=== PATIENT | male | born 1990 | race Caucasian/White ===

== ENCOUNTER 2016-10-31 14:55 | Inpatient (IN) | payer OTHER ==
[~2016-10-31] VITALS: Ht 175.3 cm; Wt 93.0 kg
[2016-10-31] MEDS ORDERED: CLONIDINE HCL 0.3 MG/24 HR TRANSDERM SYS TD STA (15:21)
--- NOTE | 2016-10-31 15:40 | EMERGENCY ROOM VISIT NOTE ---
History Report prepared by Scott: Ethan Wilkerson Under the Supervision of: Dr. Rizwan Salinas M.D. First contact with patient: 15:20 Chief Complaint: MENTAL HEALTH EVALUATION Stated Complaint: DEPRESSION, ANXIETY History of Present Illness The patient is a 26 year old male who presents to the Emergency Room with worsening suicidal ideations today. He says that he has been at [facility] for treatment for alcohol and heroin withdrawal. The patient states that he last used heroin 3 months ago, and last drank alcohol earlier today. He says that he has been having worsening anxiety problems, and has been having thoughts that he does not want to live. He had plans today to hang himself. The patient notes that he was being given Valium at [facility] for his withdrawal symptoms. Source of History: patient Onset: Today Position: other (global - suicidal ideations) Quality: other (planned to hang himself) Note: Associated symptoms: Worsening anxiety problems. Heroin and alcohol withdrawal. Last used alcohol earlier today. Review of Systems See HPI for pertinent positives & negatives. A total of 10 systems reviewed and were otherwise negative. Past Medical & Surgical Medical Problems: (1) Anxiety (2) Depression (3) Heroin abuse Family History No pertinent family history Social History Alcohol Use: occasionally, other (withdrawal) Drug Use: heroin (withdrawal) Marital Status: single Occupation Status: unemployed Current/Historical Medications Scheduled Buprenorphine Hcl-Naloxone Hcl (Suboxone 8-2 Mg), 1 TAB SL DAILY Diazepam (Valium), 10 MG PO AMHS Diazepam (Valium), 10 MG PO Q8 Allergies Coded Allergies: No Known Allergies (Unverified , 10/31/16) Physical Exam Vital Signs Date Time Temp Pulse Resp B/P (MAP) Pulse Ox O2 Delivery O2 Flow Rate FiO2 10/31/16 19:51 72 18 109/77 98 10/31/16 17:38 76 16 121/68 97 Room Air 10/31/16 15:11 36.7 75 20 121/65 97 Room Air Physical Exam GENERAL: Patient is a healthy-appearing well-nourished 26 year old male. HEAD: Normocephalic atraumatic EYES: Ocular movements intact pupils equal and react to light OROPHARYNX mucous membranes are moist no exudates present no erythema or edema present NECK: Supple no nuchal rigidity CHEST: Good equal expansion LUNGS: Clear and equal to auscultation CARDIAC: Normal S1 and S2 ABDOMEN: Soft nontender no guarding BACK: No CVA tenderness EXTREMITIES: No pain upon palpation normal muscle strength in all groups no clubbing cyanosis or edema NEURO: Patient is following commands and answering questions appropriately. Alert and oriented x3 Cranial Nerves 2-12 grossly intact PSYCH: Agitated. Medical Decision & Procedures Laboratory Results 10/31/16 16:45 Red Blood Count 5.11, Mean Corpuscular Volume 86.5, Mean Corpuscular Hemoglobin 29.9, Mean Corpuscular Hemoglobin Concent 34.6, Mean Platelet Volume 8.8, Neutrophils (%) (Auto) 56.9, Lymphocytes (%) (Auto) 33.1, Monocytes (%) (Auto) 5.3, Eosinophils (%) (Auto) 3.8, Basophils (%) (Auto) 0.7, Neutrophils # (Auto) 5.80, Lymphocytes # (Auto) 3.37, Monocytes # (Auto) 0.54, Eosinophils # (Auto) 0.39, Basophils # (Auto) 0.07 10/31/16 16:45 Test 10/31/16 15:30 10/31/16 16:45 Urine Color YELLOW Urine Appearance CLEAR (CLEAR) Urine pH 7.0 (4.5-7.5) Urine Specific [place] 1.017 (1.000-1.030) Urine Protein NEG (NEG) Urine Glucose (UA) NEG (NEG) Urine Ketones NEG (NEG) Urine Occult Blood NEG (NEG) Urine Nitrite NEG (NEG) Urine Bilirubin NEG (NEG) Urine Urobilinogen NEG (NEG) Urine Leukocyte Esterase NEG (NEG) Urine Opiates Screen NEG (NEG) Urine Methadone, Qualitative NEG (NEG) Urine Barbiturates NEG (NEG) Urine Phencyclidine (PCP) Level NEG (NEG) Ur Amphetamine/Methamphetamine NEG (NEG) MDMA (Ecstasy) Screen POS (NEG) Urine Benzodiazepines Screen POS (NEG) Urine Cocaine Metabolite POS (NEG) Urine Marijuana (THC) POS (NEG) White Blood Count 10.19 K/uL (4.8-10.8) Red Blood Count 5.11 M/uL (4.7-6.1) Hemoglobin 15.3 g/dL (14.0-18.0) Hematocrit 44.2 % (42-52) Mean Corpuscular Volume 86.5 fL (80-100) Mean Corpuscular Hemoglobin 29.9 pg (25-34) Mean Corpuscular Hemoglobin Concent 34.6 g/dl (32-36) Platelet Count 344 K/uL (130-400) Mean Platelet Volume 8.8 fL (7.4-10.4) Neutrophils (%) (Auto) 56.9 % Lymphocytes (%) (Auto) 33.1 % Monocytes (%) (Auto) 5.3 % Eosinophils (%) (Auto) 3.8 % Basophils (%) (Auto) 0.7 % Neutrophils # (Auto) 5.80 K/uL (1.4-6.5) Lymphocytes # (Auto) 3.37 K/uL (1.2-3.4) Monocytes # (Auto) 0.54 K/uL (0.11-0.59) Eosinophils # (Auto) 0.39 K/uL (0-0.5) Basophils # (Auto) 0.07 K/uL (0-0.2) RDW Standard Deviation 43.7 fL (36.4-46.3) RDW Coefficient of Variation 13.8 % (11.5-14.5) Immature Granulocyte % (Auto) 0.2 % Immature Granulocyte # (Auto) 0.02 K/uL (0.00-0.02) Anion Gap 9.0 mmol/L (3-11) Est Creatinine Clear Calc Drug Dose 159.0 ml/min Estimated GFR () 143.9 Estimated GFR (Non- 124.2 BUN/Creatinine Ratio 11.9 (10-20) Calcium Level 9.5 mg/dl (8.5-10.1) Total Bilirubin 0.7 mg/dl (0.2-1) Direct Bilirubin 0.2 mg/dl (0-0.2) Aspartate Amino Transf (AST/SGOT) 66 U/L (15-37) Alanine Aminotransferase (ALT/SGPT) 150 U/L (12-78) Alkaline Phosphatase 98 U/L (45-117) Total Protein 8.1 gm/dl (6.4-8.2) Albumin 4.3 gm/dl (3.4-5.0) Thyroid Stimulating Hormone (TSH) 3.530 uIu/ml (0.300-4.500) Ethyl Alcohol mg/dL < 3.0 mg/dl (0-3) Labs reviewed by ED physician. Medications Administered Medications (Trade) Dose Ordered Sig/Alissa Route Start Time Stop Time Status Last Admin Dose Admin Clonidine HCl (Tnqosaro-Omq-2 0.3mg/24hr Patch) 1 patch CQWK STAT TD 10/31/16 15:21 10/31/16 15:22 DC 10/31/16 16:20 1 PATCH Lorazepam (Ativan Tab) 2 mg NOW ONCE PO 10/31/16 16:15 10/31/16 16:16 DC 10/31/16 16:17 2 MG Nicotine (Nicoderm Cq 21MG Patch) 1 patch NOW STAT TD 10/31/16 19:29 10/31/16 19:31 DC 10/31/16 19:39 1 PATCH Lorazepam (Ativan Tab) 1 mg NOW STAT SL 10/31/16 19:30 10/31/16 19:31 DC 10/31/16 19:39 1 MG ED Course 152: Ordered Yncmhhfn-Jvs-1 0.3mg/24hr Patch 1 patch TD. 153: Past medical records reviewed. The patient was evaluated in room A6. A complete history and physical examination was performed. 160: Ordered Ativan Tab 2 mg PO. 161: We are going to 302 the patient. 1928: Ordered Nicoderm Cq 21MG Patch 1 patch TD. 1929: Ordered Ativan Tab 1 mg SL. 1944: The patient was brought upstairs to [address] [place] [address] for further treatment. Medical Decision Differential diagnosis: Etiologies such as mood disorder, infection, hypoglycemia, electrolyte abnormalities, cardiac sources, intracerebral event, toxicologic, neurologic, as well as others were entertained. Medication Reconciliation: I attest that I have personally reviewed the patient' s current medication list Blood Pressure Screening: Patient was found to have normal blood pressure on screening and does not require follow up. This is a 26-year-old male who presents emergency department complaining of narcotic and opiate withdrawal. Upon my arrival to the room the patient is requesting Ativan. I will note that the patient just came from a detox center. I told the patient he would receive Catapres patch at this point the patient immediately became incredibly angry and wished to be discharged. The patient at this point wanted to leave. He denied being suicidal or homicidal. Based on this [facility] was again contacted. They are going to fill out a 302 on the patient as they felt he tried to commit suicide at an earlier institution., The patient he was then given 2 mg of Ativan by mouth. He then accepted the Catapres patch. The case was discussed with case management I will note that the patient tested positive for multiple drugs including opioids and cocaine. The patient was discussed with case management and the patient was admitted to [facility]. Impression Primary Impression: Mood disorder Additional Impression: Polysubstance abuse Scribe Attestation The scribe's documentation has been prepared under my direction and personally reviewed by me in its entirety. I confirm that the note above accurately reflects all work, treatment, procedures, and medical decision making performed by me. Departure Information Dispostion Mental Health Acute Care (to 3 south) Referrals No Doctor, Assigned (PCP) Patient Instructions My [facility] Problem Qualifiers
[2016-10-31 16:01] LABS: MANUAL MICROSCOPIC REQUIRED? NO; REVIEW REQ? NO; URINE APPEARANCE CLEAR (CLEAR); URINE BILIRUBIN NEG (NEG); URINE COLOR YELLOW; URINE NITRITE NEG (NEG); URINE SPECIFIC GRAVITY 1.017 (1.000-1.030); UROBILINOGEN NEG (NEG)
[2016-10-31] MEDS ORDERED: LORAZEPAM 2 MG TAB PO STA (16:05)
[2016-10-31] MEDS ORDERED: LORAZEPAM 1 MG TAB PO ONE (16:15)
[2016-10-31] MEDS ORDERED: DIAZ2TAB2 PO (16:41)
[2016-10-31] MEDS ORDERED: BUPR1SUB23 SL (16:41)
[2016-10-31 16:44] LABS: BENZODIAZEPINE, URINE POS (NEG); COCAINE,URINE POS (NEG); PHENCYCLIDINE, URINE NEG (NEG)
[2016-10-31 17:03] LABS: BASO % 0.7 %; BASO ABS # 0.07 K/uL (0-0.2); COMPLETE YES; EOS % 3.8 %; HEMATOCRIT 44.2 % (42-52); IG% 0.2 %; LYMPH % 33.1 %; LYMPH ABS # 3.37 K/uL (1.2-3.4); MEAN CELL VOLUME 86.5 fL (80-100); MEAN CORPUSCULAR HEMOGLOBIN 29.9 pg (25-34); MEAN CORPUSCULAR HGB CONC 34.6 g/dl (32-36); MEAN PLATELET VOLUME 8.8 fL (7.4-10.4); MONO % 5.3 %; NEUT % 56.9 %; PLATELET COUNT 344 K/uL (130-400); RED BLOOD COUNT 5.11 M/uL (4.7-6.1); WHITE BLOOD COUNT 10.19 K/uL (4.8-10.8)
[2016-10-31 17:32] LABS: BUN/CREATININE RATIO 11.9 (10-20); CALCIUM 9.5 mg/dl (8.5-10.1); CREATININE 0.8 mg/dl (0.60-1.40)
[2016-10-31 17:48] LABS: THYROID STIMULATING HORMONE 3.53 uIu/ml (0.300-4.500)
[2016-10-31] MEDS ORDERED: DIAZ10TA PO ×3 (19:03→22:24)
[2016-10-31] MEDS ORDERED: NICOTINE 21 MG/24 HR TDSY TD STA (19:29)
[2016-10-31] MEDS ORDERED: LORAZEPAM 1 MG TAB SL STA (19:30)
[2016-10-31 19:51] VITALS: O2SAT 98
[2016-10-31] MEDS ORDERED: MULT-506 PO (20:28)
[2016-10-31] MEDS ORDERED: GABAPENTIN 600 MG TAB PO SCH (20:30)
[2016-10-31] MEDS ORDERED: LEVE250T PO (20:30)
[2016-10-31] MEDS ORDERED: GUAN1TAB PO (20:30)
[2016-10-31] MEDS ORDERED: QUET1TAB34 PO (20:30)
[2016-10-31] MEDS ORDERED: LAMO100T PO (20:30)
[2016-10-31 20:35] VITALS: BP 105/56; PULSE 64; TEMP 37
[2016-10-31] MEDS ORDERED: NURSING VERBAL MED ORDER ONE (20:45)
[2016-10-31] MEDS ORDERED: DIPHENOXYLATE/ATROPINE 2.5/0.025MG TAB PO PRN (21:30)
[2016-10-31] MEDS ORDERED: ACETAMINOPHEN 325 MG TAB PO PRN (21:45)
[2016-10-31] MEDS ORDERED: MAGNESIUM HYDROXIDE SUSP 30 ML UDC PO PRN (21:45)
[2016-10-31] MEDS ORDERED: SODIUM CHLORIDE 0.65% NA SOLN 45 ML (OCEAN) PRN (21:45)
[2016-10-31] MEDS ORDERED: BISMUTH SUBSALICYLATE PER ML OMNICELL CHARGE PO PRN (21:45)
[2016-10-31] MEDS ORDERED: ALUMINUM/MAGNESIUM SUSP 30 ML UDC PO PRN (21:45)
[2016-10-31] MEDS ORDERED: hydrOXYzine HCL 25 MG TAB PO PRN (21:45)
--- NOTE | 2016-10-31 21:58 | Psych Management Progress Note ---
Psychiatry Miscellaneous Date of Service: Oct 31, 2016. case reviewed with Dr. Figueroa (manager of organizational development psychiatrist) and unit nurse given conflict between med rec, ED doses of meds listed and info gathered since admit from [facility]. Patient is from [place] and was court ordered to rehab. He was at the facility for just over 1 day and was started on multiple medications there for detox and seizure precautions. He received additional benzodiazepines and clonidine patch in ED. RN reports that rx suboxone 8 mg-2 mg BID, Valium 10 mg BID plus prn, Keppra 500 mg BID in addition to home meds and Tenex 1 mg BID which is non-formulary here. Valium was replaced with neurontin taper with prn Ativan according to hospital alcohol withdrawal protocol. Dr. Figueroa ordered clonidine protocol in place of patch. There is risk of combined sedation with Neurotin and suboxone but much less potential for interaction than the respiratory suppression listed with suboxone and benzo. Dosing of suboxone reviewed with Rafi from pharmacy who entered order on my behalf with dose administered now as no 5 pm given. Standard unit prns ordered. There is apparently a suboxone taper written which will need to be reviewed by the treating provider tomorrow, I'd generally recommend that suboxone continue at current dose and can be readdressed when returns to rehab. PDMP Rx Aware queried, [place] state shows 7 doses of suboxone 8 mg-2 mg filled 10/28. No other controlled substance. No history in [place]. Given that it appears that he got approx 1000 mg of Keppra prior to transfer to ED, will taper to 250 mg BID for tomorrow and then d/c unless other schedule ordered tomorrow when there can be more direct communication with [facility].
[2016-10-31] MEDS ORDERED: GABAPENTIN 1200MG LOADING DOSE PO SCH (22:00)
[2016-10-31] MEDS: BUPRENORPHINE/NALOXONE 8/2 MG TAB SL SCH (22:01)
[2016-10-31] MEDS: CLONIDINE HCL 0.1 MG TAB PO SCH (22:01)
[2016-10-31] MEDS: QUETIAPINE FUMARATE 100 MG TAB PO SCH (22:04)
[2016-10-31] MEDS: THIAMINE HCL 100 MG TAB PO SCH (22:04)
[2016-10-31] MEDS: LEVETIRACETAM 250 MG TAB PO SCH (22:17)
[2016-10-31] MEDS ORDERED: BUPR1SUB23 PO (22:24)
[2016-10-31 22:25] VITALS: BP 105/56; PULSE 64; TEMP 37; Ht 175.3 cm; Wt 93.0 kg
[2016-11-01] VITALS (7 sets, daily range): BP systolic 97–129; BP diastolic 61–88; PULSE 81–108; TEMP 36.5–37.2
[2016-11-01] MEDS: GABAPENTIN 600MG Q6H DOSE PO SCH ×2 (04:09→10:00)
[2016-11-01] MEDS: LEVETIRACETAM 250 MG TAB PO SCH (09:08)
[2016-11-01] MEDS: MULTIVITAMIN TAB PO SCH (09:08)
[2016-11-01] MEDS: CLONIDINE HCL 0.1 MG TAB PO SCH ×5 (09:08→20:40)
[2016-11-01] MEDS: BUPRENORPHINE/NALOXONE 8/2 MG TAB SL SCH ×3 (09:28→17:28)
[2016-11-01] MEDS: NICOTINE 21 MG/24 HR TDSY TD SCH (11:19)
--- NOTE | 2016-11-01 11:46 | Psychiatric History & Physical ---
History Date of Service Nov 01, 2016. Identifying Data Nick Munoz is a 26-year-old male from [facility], who was admitted to our unit on referral from [facility] due to reports of suicidal ideation. Information is gathered from the patient and not necessarily considered to be reliable. Chief Complaint "I don't care.". History of Present Illness The patient is a 26-year-old gentleman from [facility] who apparently had been in [facility] for several months for grand ramirez. At some point during his [facility] stay, he developed suicidal ideation and seizures and was hospitalized medically for 7 days. He was then returned to [facility] for 3 days but then the courts allowed him to return home where he was for 2 months before he failed multiple drug screens and was court ordered into rehabilitation at [facility] here in [place]. He says he was at [facility] for 3 days, began having suicidal ideation because of his situation and being away from his girlfriend. He was then brought to our emergency room for evaluation and admitted voluntarily with a backup 302 petition her statement. He states he has a lot of stressors in his life. He says his growing up years were chaotic as both parents were drug addicts and he was always around drugs. He dropped out of high school in eighth grade because he had social anxiety, couldn't be around other people. He started doing drugs at the age of 17 and it became a problem by the age of 19. He has spent time at a rehabilitation facility in [facility]. His longest period of sobriety was 1-1/2 years around the age of 19 when he went to this facility. He admits that he has continued to use substances since then including a 24 or 30 pack of beer daily, 3-5 bundles of heroin IV, several grams of cocaine daily. This is been going on for several years. He also admits that he has been in mental health treatment for many years and is on disability for it. He uses diagnoses like bipolar disorder and schizophrenia to describe his treatment. He says he is in treatment with a Dr. Lynne in [facility] but we cannot find this physician when we goggle it. He says he has been on Lamictal, Seroquel, clonidine and Klonopin for years. He does not have a good relationship with his family and was on the phone arguing with his father prior to the interview. Today he continues to report a depressed mood with suicidal ideation but denies a specific plan. He says he is experiencing nausea and vomiting as part of his withdrawal and is unable to eat and says he hasn't eaten anything in 5 days. He reports disturbed sleep acutely over the last 5 days but chronically since about the age of 16 or 17. He reports low energy but during the interview he is shaking his legs restless and leaves twice because he is irritable. When asked about hallucinations, he says "my heads all fucked up." And says that he did hear voices when he was in [facility] that old him he was worthless. He reports chronic social anxiety feeling that he can't be around people because he starts to shake, thinks they're talking about him and out to get him. This has been going on for several years. He denies any symptoms of jermain. Its difficult to tell whether he has clear eating disordered symptoms but says that he doesn't like to be fast and will sometimes not eat because of it. During the interview he is requesting high dose Valium and Suboxone and is refusing to take the AWSS protocol medicines including gabapentin. Past Psychiatric History Current OP Treatment: psychiatrist Prior OP Treatment: psychiatrist Prior Psych Hospitalizations: other Access to a Gun: No Suicide Attempts: Yes (in [place] 2 months ago by hanging while in [facility]) Past Medication Trials Prozac, Paxil, Cymbalta, Zoloft, Risperdal, Zyprexa, Abilify Past Medical/Surgical History History of Concussion/Seizure: No (1) Hypertension Allergies Allergies: Coded Allergies: No Known Allergies (Unverified , 10/31/16) Home Medications Scheduled Buprenorphine Hcl-Naloxone Hcl (Suboxone 8-2 Mg), 1 TAB PO BID Diazepam (Valium), 10 MG PO BID Guanfacine Hcl (Tenex), 1 TAB PO BID Lamotrigine (Lamictal), 1 TAB PO BID Levetiracetam (Keppra), 500 MG PO BID Multivitamin (Multivitamin), 1 TAB PO DAILY Miscellaneous Medications Quetiapine Fumarate (Seroquel), 200 MG PO Family History No pertinent family history History of Suicide: No History of Substance Abuse: Yes (parentscrack and alcohol) Psychiatric History: Yes (he reports his whole family has schizophrenia) Alcohol Use Alcohol Use In Past 12 Months: Yes (6-12 beers per day, daily) AUDIT Total Score: 27 He reports drinking 24-30 beers per day until 3 days ago Smoking Use Smoking Status: Current Every Day Smoker Substance History Chronically uses several grams of cocaine, 3-5 bundles of IV heroin as well as marijuana daily Personal History Lives in: [place] with his girlfriend Childhood: Chaotic, raised by mother and father. Father is a bundle helper. He has a 21-year-old sister who is but about to graduate from college Education: started high school (dropped out in eighth grade) Work History: On unemployment Relationship History: never Children: none Spiritual Affiliation: none Legal History: reported (grand james, violation of probation, court ordered to rehabilitation) Psychological Trauma History: Other (denies) Review of Systems Constitutional: malaise Eyes: denies: no symptoms, as stated in HPI, eye pain, tearing, itching, redness, discharge, double vision, visual changes, blurred vision, photophobia, other ENT: denies: no symptoms reported, see HPI, ear pain, ear discharge, loss of hearing, tinnitus, nasal pain, nasal congestion, rhinorrhea, epistaxis, sore throat, stidor, throat swelling, mouth pain, mouth swelling, dental pain, gum swelling, other Cardiovascular: reports: chest pain (with anxiety) Respiratory: reports: short of breath (with anxiety) Gastrointestinal: constipation (last bowel movement 6 days ago) Genitourinary - Male: reports: other (difficulty initiating stream) Musculoskeletal: back pain (from a fall 1.5 years ago) Integumentary: denies no symptoms reported, denies see HPI, denies change in color, denies change in hair/nails, denies dryness, denies lesions, denies lumps , denies rash, denies other Neurologic: reports: numbness (and tingling in bilateral lower extremities occasionally) Endocrine: denies: no symptoms, as stated in HPI, cold intolerance, heat intolerance, hair changes, goiter, polydipsia, polyuria, skin changes, other Hematologic / Lymphatic: denies: no symptoms, as stated in HPI, abnormal clotting, adenopathy, anemia, easy bleeding, easy bruising, gums bleeding, petechiae, other Examination Physical Examination Exam performed by Dr. Salinas in the emergency room yesterday has been reviewed and accepted his medical clearance for our unit Vital Signs Vital Signs Past 12 Hours Date Time Temp Pulse Resp B/P (MAP) Pulse Ox O2 Delivery O2 Flow Rate FiO2 11/01/16 09:06 36.8 105 16 128/77 11/01/16 06:14 36.9 92 14 103/69 Laboratory Results Last 24 Hours Test 10/31/16 15:30 10/31/16 16:45 Urine Color YELLOW Urine Appearance CLEAR Urine pH 7.0 Urine Specific [place] 1.017 Urine Protein NEG Urine Glucose (UA) NEG Urine Ketones NEG Urine Occult Blood NEG Urine Nitrite NEG Urine Bilirubin NEG Urine Urobilinogen NEG Urine Leukocyte Esterase NEG Urine Opiates Screen NEG Urine Methadone, Qualitative NEG Urine Barbiturates NEG Urine Phencyclidine (PCP) Level NEG Ur Amphetamine/Methamphetamine NEG MDMA (Ecstasy) Screen POS Urine Benzodiazepines Screen POS Urine Cocaine Metabolite POS Urine Marijuana (THC) POS White Blood Count 10.19 K/uL Red Blood Count 5.11 M/uL Hemoglobin 15.3 g/dL Hematocrit 44.2 % Mean Corpuscular Volume 86.5 fL Mean Corpuscular Hemoglobin 29.9 pg Mean Corpuscular Hemoglobin Concent 34.6 g/dl Platelet Count 344 K/uL Mean Platelet Volume 8.8 fL Neutrophils (%) (Auto) 56.9 % Lymphocytes (%) (Auto) 33.1 % Monocytes (%) (Auto) 5.3 % Eosinophils (%) (Auto) 3.8 % Basophils (%) (Auto) 0.7 % Neutrophils # (Auto) 5.80 K/uL Lymphocytes # (Auto) 3.37 K/uL Monocytes # (Auto) 0.54 K/uL Eosinophils # (Auto) 0.39 K/uL Basophils # (Auto) 0.07 K/uL RDW Standard Deviation 43.7 fL RDW Coefficient of Variation 13.8 % Immature Granulocyte % (Auto) 0.2 % Immature Granulocyte # (Auto) 0.02 K/uL Sodium Level 138 mmol/L Potassium Level 4.0 mmol/L Chloride Level 103 mmol/L Carbon Dioxide Level 26 mmol/L Anion Gap 9.0 mmol/L Blood Urea Nitrogen 10 mg/dl Creatinine 0.80 mg/dl Est Creatinine Clear Calc Drug Dose 159.0 ml/min Estimated GFR () 143.9 Estimated GFR (Non- 124.2 BUN/Creatinine Ratio 11.9 Random Glucose 82 mg/dl Calcium Level 9.5 mg/dl Total Bilirubin 0.7 mg/dl Direct Bilirubin 0.2 mg/dl Aspartate Amino Transf (AST/SGOT) 66 U/L Alanine Aminotransferase (ALT/SGPT) 150 U/L Alkaline Phosphatase 98 U/L Total Protein 8.1 gm/dl Albumin 4.3 gm/dl Thyroid Stimulating Hormone (TSH) 3.530 uIu/ml Ethyl Alcohol mg/dL < 3.0 mg/dl Mental Examination During interview pt is: alert and oriented, uncooperative Appearance: appropriately dressed Eye contact is: poor Motor behavior is: other (agitated with shaking legs, restlessness and left interview twice) Speech: other (at times rapid when in distress) Affect: tearful, irritable Mood is: irritable Thought process: other (disjointed) Thought content: paranoid (that others are talking about him or out to get him) Suicidal thought are: present, Plan: denied, Intent: denied Homicidal thoughts are: denied Hallucinations: denies auditory, denies visual Cognition: language grossly intact Intelligence estimated to be: below average Insight: impaired Judgement: impaired Impression / Recommendations Impression 26-year-old gentleman from [place] who is admitted to our unit from [facility] where he developed suicidal ideation. He remains in distress with depression and suicidal thinking but denies an acute plan today. He is demanding of which medications he will and will not take and at times refused to consider any recommendations for his treatment. We will continue with the AWSS protocol for withdrawal purposes using both gabapentin and Ativan. In addition to his at bedtime therapy a we will add 25 mg every 4 hours when necessary for agitation. He reports that he had been taking only Klonopin 0.5 mg by prescription prior to going to [facility] and so will likely not be at risk of benzodiazepine withdrawal and will be covered by the gabapentin for any withdrawal potential. We will get supplemental information from his father and or his girlfriend. 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 We will coordinate with [facility] as he will need to return there since he is court ordered into treatment. He is concerned that through his IV drug use he may have been exposed blood-borne pathogen's. Since this information will not change the direction of our care, we will defer this to his outpatient providers or he could [facility]. At this time, he requires inpatient mental health treatment due to the risk for self-harm if discharged. Inventory Assets Strengths: Level of his girlfriend Needs: To abstain from all illicit substances. Risk Factors Assessment Male: Yes : Yes /single/: No Higher / Fall in social status: No Access to guns: No Health problems: No Mental Health Diagnoses: Yes Substance use disorders: Yes Previous attempt: Yes Previous psychiatric stay: Yes Hopelessness: Yes Smoker: Yes Protective Factors Assessment Jew beliefs: No : No Responsible for young children: No Employed: No Stable relationships: Yes Supportive family: No Recommendations (1) Mood disorder 11/01/16 -Will clarify with his outpatient psychiatrist, Dr. Farmer, what his current regimen is. Pharmacy records reveal 3 different recent antidepressants. -Will continue his Seroquel 200 mg at bedtime and add 25 mg every 4 hours when necessary agitation -Will need to clarify outpatient working diagnosis although may be difficult to make in view of chronic substance abuse. -Will continue Lamictal 100 mg twice a day -Every 15 minute checks for safety -Encourage participation in group and individual counseling as tolerated -The patient is agitating himself by phone calls with his father and staff will need to monitor this -Obtain outpatient records from his psychiatrist to clarify diagnoses and current medication list -Supplemental from father and our family meeting (2) Polysubstance abuse 11/01/16 - Recommend return to [place] when stable - AWSS protocol using both gabapentin and Ativan - Recovery protocol -Will continue Suboxone taper here as suggested by [facility] -Obtain outpatient records from patient's Suboxone provider in [place] (3) Alcohol withdrawal 11/01/16 - AWSS Protocol using gabapentin and Ativan - Recovery protocol -Return to [facility] when stable (4) Hypertension 11/01 - Monitor vital signs every 4 hours as part of the withdrawal protocol -Quantity seen as not formulary and so will use clonidine -Difficult to tell if he actually has essential hypertension or whether his BP elevations are in the context of substance withdrawal (5) Tobacco use disorder 11/01 -Recommend patient cut down or quit. Recently smoking as much as 3 pack of cigarettes a day so we will provide nicotinic patch 21 mg daily and Nicorette gum every hour when necessary -Patient declines any further intervention for smoking cessation as he plans to return to smoking immediately upon discharge- Has been reviewed with Dr. Susie Snyder CPT Code Initial Hospital Care: [id number]
[2016-11-01] MEDS: LORAZEPAM 1 MG TAB PO PRN ×2 (12:34→18:43)
--- NOTE | 2016-11-01 14:14 | Medical Student: BHU Only ---
Psychiatric Evaluation IDENTIFYING DATA: Nick Munoz is a 26-year-old male who currently lives in [place], [place] with his girlfriend. Nick Munoz was admitted to the [facility] on a [address] [facility]. Nick Munoz was brought to the hospital by EMS. Information provided by the patient is considered to be somewhat reliable. CHIEF COMPLAINT: "They won't give me my meds". HISTORY OF PRESENT ILLNESS: This is a 26 y/o male with pmh of substantial substance abuse issues, previous incarcerations, and mental health disorders who has been transferred to [address] [place] [address] [facility] after making several comments to staff about his desire to kill himself. Patient is a poor historian and agitated at time of interview. He was on day 07/26 for required rehab for alcohol, cocaine, and heroin abuse after violating his probation. He was incarcerated 3-4 months ago for arson. While in half-way, he attempted suicide by hanging himself with sheets in his cell, which led to a 7 day hospital stay. Afterwards, he was in snf for a few days before being let out on probation. He was on probation for approximately 2 months before coming to [facility] and then here. He has an extensive past history of mental health and substance abuse issues. Patient is a poor historian in regards to his past and current health issues, and is vague about his diagnoses. At times, he describes being diagnosed with Bipolar, but then later states he is schizophrenic. He is very agitated regarding not getting the proper meds and intermittently demands ativan. His last drink was over 3 days ago. He continues to complain of withdrawal symptoms including nausea, vomiting, sweats, chills, and headaches. He note that he started using cocaine, heroin, alcohol around age 17, but it became a problem at age 19. He has been drinking as much as a 24 pack of beer a day, using 3-5 bundles of heroin a day, and a few grams of cocaine a day. He had one prior stint at rehab when he was 19 at [facility]. He reports being sober for approximately one year after that. Psychiatris ROS: Reports difficulty sleeping, decreased appetite, low energy, difficulty focusing. He reports anxiety that is especially severe around other people. He reports difficulty eating and loss of appetite but denies trying to starve himself, over exercise, or counting calories. He denies binge eating. He notes that sometimes he hears whispering voices, which started when he was in snf. The voices whisper to him that he is worthless. He denies episodes of jermain. He denies visual hallucinations. Risk of violence to self within the last 6 months: No Risk of violence to others within the last 6 months: No CURRENT MEDICATIONS: Buprenorphine Hcl-Naloxone Hcl (Suboxone 8-2 Mg), 1 TAB PO BID Diazepam (Valium), 10 MG PO BID Guanfacine Hcl (Tenex), 1 TAB PO BID Lamotrigine (Lamictal), 1 TAB PO BID Levetiracetam (Keppra), 500 MG PO BID Multivitamin (Multivitamin), 1 TAB PO DAILY PAST PSYCHIATRIC HISTORY: Current outpatient mental health treatment: Dr. Antolin Farmer in [place], [place]. Dr. Rush in [place]. Prior outpatient mental health treatment: Per above. [facility] he was 19. Prior medication trials: Has tried abilify, risperdal, prozac, paxil, wellbutrin , cymbalta, zoloft and states that 'nothing works' Prior suicide attempts: Yes, in half-way a few months ago. Access to weapons: No PAST MEDICAL HISTORY: Current primary care practitioner is N/A medical history: HTN surgical history: None history of head injury: None history of seizure: Yes, in half-way when he went through withdrawal history of iv drug use: Yes. ALLERGIES: NKDA FAMILY HISTORY: Mental Health: States mom, dad have had 'everything he has.' Substance Abuse: Mother and father: Crack, alcohol. Suicide: N/a Medical history: Heart disease, ADHD SUBSTANCE USE HISTORY: Tobacco use hx: Current 3 packs a day smoker. Heroin: 4-5 bundles a day. Cocaine: 'few grams a day' Alcohol: 12-24 beers a day PERSONAL HISTORY: Born: Born and raised in [place]. Currently resides in [place], [place]. Early development: Raised in drug/alcohol rich environment. Struggled in school as a child. Siblings: Sister who is 21, currently in school to become a food safety officer Education: Dropped out in eighth grade. Work History: Does not work. 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 Relationship History: Girlfriend of 1.5 years. Currently lives with her. Claims she does not use drugs. Children: None. Spiritual Affiliation: None. Legal History: 2 DUI's, arrested and in snf for arson this year. Physical abuse history: None. Emotional/psychological abuse history: None Sexual abuse history: None ROS: CONSTITUTIONAL: Notes weight loss. HEENT: Eyes: Denies changes in vision. Notes difficulty swallowing but is able to swallow foods and liquids. SKIN: Denies, rashes, bruises. CARDIOVASCULAR: Experiences chest pain and palpitations when anxious. RESPIRATORY: Denies SOB, cough. GASTROINTESTINAL: Having significant vomiting, nausea, constipation. Denies diarrhea. GENITOURINARY: Has difficulty initiating stream. Denies pain or hematuria. NEUROLOGICAL: Experiences daily headaches. MUSCULOSKELETAL: Generalized pains MENTAL STATUS EXAM: Appearance is that of an agitated, disheveled, and anxious male who appears of his stated age. The patient is not incredibly cooperative with interview and walks out from time to time. Eye contact is poor. Motor behavior is abnormal- at times is shaking his arms and legs. Speech: pressured Affect: Heightened Mood: "Anxious". Thought process: Thought process is circumstantial and distractible. Thought content:He is preoccupied with fixing his medication regiment.Without current hallucinations delusions, compulsions. Perception: no depersonalization, hallucinations. Cognition: The patient is oriented to person, place, time. General fund of knowledge is appropriate for level of education. ntelligence is estimated to be poor. Insight is estimated to be very limited. Judgment is estimated to be poor. INVENTORY OF ASSETS: * strengths: jail girlfriend who he claims does not use drugs. * resources: poorly verbalized * needs: poorly verbalized. RISK ASSESSMENT: * Risk factors: Male, , Health Problems, Mental Health Diagnoses, Substance Use Disorders (including smoking tobacco), Previous attempts, Previous psychiatric hospitalization, Hopelessness * Protective factors: Impulsive attempt DIAGNOSTIC IMPRESSION: This is a 26 y/o male with extensive pmh of substance abuse and mental health illnesses in the context of acute withdrawal. From a biopsychosocial perspective , there are multiple risk factors at play including: extensive family history of mental illness, growing up with drugs and alcohol, current psych diagnoses ( although currently not identified; records pending), hx of incarceration and clinical specialist vascular drug abuse. While experiencing distress and agitation from acute withdrawal, it is difficult to make any definitive mental health diagnoses at this time. However, the differential includes but is not limited to antisocial personality disorder, bipolar disorder with possible psychotic features, schizoaffective disorder, schizophrenia, major depressive disorder with anxiety. DSM-V DIAGNOSIS: Substance abuse disorder, severe (cocaine, heroin, alcohol) RECOMMENDATIONS: 1. Polysubstance Abuse Disorder and Alcohol withdrawal a. On [facility] protocol offering gabapentin and ativan. Patient currently refusing gabapentin. b. Suboxone 8-[address] [facility] protocol. 2. Mood disorder, nos a. Continue to monitor b. Pending records from Dr. Farmer, his psychiatrist in [place]. c. Continue previous seraquil dosage 200 mg at night. Add daytime 25mg q4hr prn seroquel d. Continue lamictal 100 mg BID. e. Safety checks q15. f. Monitor phone usage, as has been getting very agitated with phone calls. g. Currently refusing to sign KAJAL for father. 3. Tobacco Use Disorder a. currently on nicotine patch 4. Suicide precautions will be maintained to help provide for patient safety while in the hospital. 5. Elopement precautions have been established. 6. Constipation a. Encourage use of prn laxatives available. 7. Aftercare Planning: a. We will make an aftercare appointment with an aftercare provider to provide outpatient follow-up with a psychiatric provider to manage medications initiated while in the hospital. Date of Service: Nov 01, 2016.
[2016-11-01] MEDS: QUETIAPINE FUMARATE 100 MG TAB PO SCH (21:23)
[2016-11-01] MEDS: THIAMINE HCL 100 MG TAB PO SCH (21:23)
[2016-11-02] VITALS (8 sets, daily range): BP systolic 96–192; BP diastolic 61–84; PULSE 71–120; TEMP 36.4–37.1
[2016-11-02] MEDS: LORAZEPAM 1 MG TAB PO PRN ×2 (00:27→20:36)
[2016-11-02] MEDS: GABAPENTIN 600MG Q8H DOSE PO SCH ×3 (06:24→20:37)
[2016-11-02] MEDS: CLONIDINE HCL 0.1 MG TAB PO SCH ×4 (08:30→20:36)
[2016-11-02] MEDS: MULTIVITAMIN TAB PO SCH (09:35)
[2016-11-02] MEDS: BUPRENORPHINE/NALOXONE 8/2 MG TAB SL SCH (09:35)
[2016-11-02] MEDS: NICOTINE 21 MG/24 HR TDSY TD SCH (09:36)
[2016-11-02] MEDS: CLONIDINE HCL 0.1 MG TAB PO PRN ×2 (10:39→19:00)
[2016-11-02] MEDS: QUETIAPINE FUMARATE 25 MG TAB PO PRN ×2 (12:16→17:35)
--- NOTE | 2016-11-02 12:53 | Psychiatric Progress Notes ---
Progress Note Date of Service Nov 02, 2016. Interval History 26-year-old gentleman from [place] who is admitted to our unit from [facility] where he developed suicidal ideation. He remains in distress with depression and suicidal thinking but denies an acute plan today. He is demanding of which medications he will and will not take and at times refused to consider any recommendations for his treatment. We will continue with the AWSS protocol for withdrawal purposes using both gabapentin and Ativan. In addition to his at bedtime therapy a we will add 25 mg every 4 hours when necessary for agitation. He reports that he had been taking only Klonopin 0.5 mg by prescription prior to going to [facility] and so will likely not be at risk of benzodiazepine withdrawal and will be covered by the gabapentin for any withdrawal potential. We will get supplemental information from his father and or his girlfriend. The medical student has obtained a list of his medications from his pharmacy in [place] and so we will be able to clarify the spelling of all of his providers and get outside information. We will coordinate with [facility] as he will need to return there since he is court ordered into treatment. He is concerned that through his IV drug use he may have been exposed blood-borne pathogen's. Since this information will not change the direction of our care, we will defer this to his outpatient providers or he could have it done at his local [facility] clinic. At this time, he requires inpatient mental health treatment due to the risk for self-harm if discharged. Chief Complaint "You people arent' giving me the right meds.". Subjective Patient was seen & assessed interval progress reviewed with Treatment Team. The patient remains irritable. Nursing reports that he was on the phone repeatedly yesterday to his father, yelling and becoming belligerent. he would not sign a release of information for father, but father called in request that he not be allowed to call him repeatedly and gave additional info about the patient's drug/legal/behavioral history (see social service note dated yesterday ). He described him as spoiled. Nursing also reported that he made multiple requests for ativan, and when told he met no AWSS criteria for it, he would begin to abruptly and intentionally shake to try to make a point. He attended only one group yesterday, community meeting in the evening. Today he says that he is depressed, but says that his SI are "fine I suppose". He says that he doesn't plan to attend any groups while here as we don't know anything about treating addicts, and "they are nicer at [facility]". He is focused on wanting to call his girlfriend as he was told that he could not use the phone during group times. He makes contradicting statements, saying that he didn't eat breakfast then saying he ate a very small amount and wants no more. He says that he "didn't sleep at all" last night, but staff observed him to sleep for 4.5 hours. He says that he doesn't like having a roommate, that he doesn't trust anyone. He reports ongoing constipation, but refuses the offer of MOM. He denies aud/vis hallucinations, but repeatedly says "I'm schizophrenic". He does not appear to be responding to internal stimuli. He asks for more ativan and says "they'll just give it to me when I go back to rehab.". He has not been willing to abide by the rules regarding length of phone calls. Review of Systems Constitutional: + fatigue ENT: No hearing loss, No unusual epistaxis, No nasal symptoms, No sore throat, No tinnitus, No dental problems, No trouble swallowing, No problem reported Respiratory: No cough, No sputum, No wheezing, No shortness of breath, No dyspnea on exertion, No dyspnea at rest, No hemoptysis, No problem reported Cardiovascular: No chest pain, No orthopnea, No PND, No edema, No claudication , No palpitations, No problem reported Abdomen: + constipation Musculoskeletal: No joint pain, No muscle pain, No swelling, No calf pain, No problem reported Neurologic: No memory loss, No paralysis, No weakness, No numbness/tingling, No vertigo, No balance problems, No problem reported Psychiatric: + depression symptoms Integumentary: No rash, No itch, No new/changing skin lesions, No color change , No bleeding, No problem reported Sleep Information Total Hours of Sleep: 4.50 Meal Information Percent of Breakfast Consumed: 20 Percent of Lunch Consumed: 100 Percent of Dinner Consumed: 0 Mental Status Exam During interview pt is: alert and oriented, uncooperative Appearance: appropriately dressed Eye contact is: poor Motor behavior is: other (agitated with shaking legs, restlessness) Speech: other (at times rapid when in distress) Affect: irritable Mood is: irritable Thought process: other (disjointed) Thought content: paranoid Suicidal thought are: denied, present, Plan: denied, Intent: denied Homicidal thoughts are: denied Hallucinations: denies auditory, denies visual Cognition: language grossly intact Intelligence estimated to be: below average Insight: impaired Judgement: impaired Impression The patient has been poorly cooperative with treatment since admission, refusing most groups and focused on getting meds. Today he says that he will not participate in our programming because we don't know anything. I have clarified his Suboxone dose to be 2/0.5 mg and not 8/2 mg and so will order 2/ 0.5 BID and continue that dose until he returns to [facility]. Since his primary problem is that of addictions, we will strive to return him to rehab as soon as he is stable. He is denying SI today and so may be able to return in the next few days. WE have been instructed by [facility] staff that they were told that if the patient is not cooperative with treatment in any way, that he will be returned to [facility]. Plan (1) Mood disorder 11/01/16 -Will clarify with his outpatient psychiatrist, Dr. Farmer, what his current regimen is. Pharmacy records reveal 3 different recent antidepressants. -Will continue his Seroquel 200 mg at bedtime and add 25 mg every 4 hours when necessary agitation -Will need to clarify outpatient working diagnosis although may be difficult to make in view of chronic substance abuse. -Will continue Lamictal 100 mg twice a day -Every 15 minute checks for safety -Encourage participation in group and individual counseling as tolerated -The patient is agitating himself by phone calls with his father and staff will need to monitor this -Obtain outpatient records from his psychiatrist to clarify diagnoses and current medication list -Supplemental from father and our family meeting (2) Polysubstance abuse 11/01/16 - Recommend return to [place] when stable - AWSS protocol using both gabapentin and Ativan - Recovery protocol -Will continue Suboxone taper here as suggested by [facility] -Obtain outpatient records from patient's Suboxone provider in [place] (3) Alcohol withdrawal 11/01/16 - AWSS Protocol using gabapentin and Ativan - Recovery protocol -Return to [facility] when stable (4) Hypertension 11/01 - Monitor vital signs every 4 hours as part of the withdrawal protocol -Quantity seen as not formulary and so will use clonidine -Difficult to tell if he actually has essential hypertension or whether his BP elevations are in the context of substance withdrawal (5) Tobacco use disorder 11/01 -Recommend patient cut down or quit. Recently smoking as much as 3 pack of cigarettes a day so we will provide nicotinic patch 21 mg daily and Nicorette gum every hour when necessary -Patient declines any further intervention for smoking cessation as he plans to return to smoking immediately upon discharge- Has been reviewed with Dr. Susie Snyder Discharge / Aftercare Planning Primary Care Physician: Name: Brayan Pantoja (Suboxone per pt) Therapist: Name: Leandra Restrepo ([facility]) Organ Tuner: Name: None Inventory Assets Strengths: Level of his girlfriend Needs: To abstain from all illicit substances. Risk Factors Assessment Male: Yes : Yes /single/: No Higher / Fall in social status: No Health problems: No Mental Health Diagnoses: Yes Substance use disorders: Yes Previous attempt: Yes Previous psychiatric stay: Yes Hopelessness: Yes Smoker: Yes Protective Factors Assessment Lutheran beliefs: No : No Responsible for young children: No Employed: No Stable relationships: Yes Supportive family: No Data Vital Signs Last 24 Hrs: Date Time Temp Pulse Resp B/P (MAP) Pulse Ox O2 Delivery O2 Flow Rate FiO2 11/02/16 10:33 71 18 132/80 11/02/16 08:40 36.6 85 16 96/61 11/02/16 06:52 36.6 82 16 99/64 87 103/70 11/02/16 00:43 36.4 93 20 107/69 11/01/16 20:38 36.6 85 14 129/82 11/01/16 16:02 81 105/67 11/01/16 14:38 37.2 101 16 97/61 11/01/16 12:26 36.8 108 18 121/75 11/01/16 11:33 36.5 97 18 119/88 Meds Administered Last 24 Hrs: Meds Administered (Past 24Hrs) Medications (Trade) Dose Ordered Sig/Alissa Route Start Time Stop Time Status Last Admin Dose Admin Clonidine HCl (Przcqsqa-Yai-0 0.3mg/24hr Patch) 1 patch CQWK STAT TD 10/31/16 15:21 10/31/16 15:22 DC 10/31/16 16:20 1 PATCH Lorazepam (Ativan Tab) 2 mg NOW ONCE PO 10/31/16 16:15 10/31/16 16:16 DC 10/31/16 16:17 2 MG Nicotine (Nicoderm Cq 21MG Patch) 1 patch NOW STAT TD 10/31/16 19:29 10/31/16 19:31 DC 10/31/16 19:39 1 PATCH Lorazepam (Ativan Tab) 1 mg NOW STAT SL 10/31/16 19:30 10/31/16 19:31 DC 10/31/16 19:39 1 MG Thiamine HCl (Vitamin B-1 Tab) 100 mg Q24H PO 10/31/16 22:00 11/30/16 21:59 11/01/16 21:23 100 MG Lorazepam (Ativan Tab) PRN Dosing -Active Protocol UD PRN PO 10/31/16 20:30 11/30/16 20:29 11/02/16 00:27 2 MG Multivitamins (Multivitamin Tab) 1 tab DAILY PO 11/01/16 09:00 12/01/16 08:59 11/02/16 09:35 1 TAB Lamotrigine (Lamictal Tab) 100 mg BID PO 10/31/16 21:00 11/30/16 20:59 11/02/16 09:35 100 MG Quetiapine Fumarate (seroQUEL TAB) 200 mg HS PO 10/31/16 22:00 11/30/16 21:59 11/01/16 21:23 200 MG Gabapentin (Neurontin Tab) 1,200 mg TODAY@2200 PO 10/31/16 22:00 10/31/16 22:01 DC 10/31/16 22:03 1,200 MG Gabapentin (Neurontin Tab) 600 mg Q6H PO 11/01/16 04:00 11/01/16 10:01 DC 11/01/16 10:00 600 MG Gabapentin (Neurontin Tab) 600 mg Q8H PO 11/02/16 06:00 11/02/16 22:01 11/02/16 06:24 600 MG Clonidine HCl (Catapres Tab) 0.1 mg Q4HWA PO 10/31/16 22:00 11/30/16 21:59 11/01/16 20:40 0.1 MG Clonidine HCl (Catapres Tab) 0.1 mg Q2H PRN PO 10/31/16 21:30 11/30/16 21:29 11/02/16 10:39 0.1 MG Buprenorphine/ Naloxone (Suboxone Tab) 1 ea BID17 SL 10/31/16 22:00 11/30/16 21:59 11/02/16 09:35 1 EA Levetiracetam (Keppra Tab) 250 mg BID PO 10/31/16 22:00 11/01/16 09:01 DC 11/01/16 09:08 250 MG Nicotine (Nicoderm Cq 21MG Patch) 1 patch QAM TD 11/01/16 10:00 12/01/16 09:59 11/02/16 09:36 1 PATCH Lab Results Last 24 Hrs: 10/31/16 16:45 Red Blood Count 5.11, Mean Corpuscular Volume 86.5, Mean Corpuscular Hemoglobin 29.9, Mean Corpuscular Hemoglobin Concent 34.6, Mean Platelet Volume 8.8, Neutrophils (%) (Auto) 56.9, Lymphocytes (%) (Auto) 33.1, Monocytes (%) (Auto) 5.3, Eosinophils (%) (Auto) 3.8, Basophils (%) (Auto) 0.7, Neutrophils # (Auto) 5.80, Lymphocytes # (Auto) 3.37, Monocytes # (Auto) 0.54, Eosinophils # (Auto) 0.39, Basophils # (Auto) 0.07 10/31/16 16:45 Test 10/31/16 15:30 10/31/16 16:45 Urine Color YELLOW Urine Appearance CLEAR (CLEAR) Urine pH 7.0 (4.5-7.5) Urine Specific Edmond 1.017 (1.000-1.030) Urine Protein NEG (NEG) Urine Glucose (UA) NEG (NEG) Urine Ketones NEG (NEG) Urine Occult Blood NEG (NEG) Urine Nitrite NEG (NEG) Urine Bilirubin NEG (NEG) Urine Urobilinogen NEG (NEG) Urine Leukocyte Esterase NEG (NEG) Urine Opiates Screen NEG (NEG) Urine Methadone, Qualitative NEG (NEG) Urine Barbiturates NEG (NEG) Urine Phencyclidine (PCP) Level NEG (NEG) Ur Amphetamine/Methamphetamine NEG (NEG) MDMA (Ecstasy) Screen POS (NEG) Urine Benzodiazepines Screen POS (NEG) Urine Cocaine Metabolite POS (NEG) Urine Marijuana (THC) POS (NEG) White Blood Count 10.19 K/uL (4.8-10.8) Red Blood Count 5.11 M/uL (4.7-6.1) Hemoglobin 15.3 g/dL (14.0-18.0) Hematocrit 44.2 % (42-52) Mean Corpuscular Volume 86.5 fL (80-100) Mean Corpuscular Hemoglobin 29.9 pg (25-34) Mean Corpuscular Hemoglobin Concent 34.6 g/dl (32-36) Platelet Count 344 K/uL (130-400) Mean Platelet Volume 8.8 fL (7.4-10.4) Neutrophils (%) (Auto) 56.9 % Lymphocytes (%) (Auto) 33.1 % Monocytes (%) (Auto) 5.3 % Eosinophils (%) (Auto) 3.8 % Basophils (%) (Auto) 0.7 % Neutrophils # (Auto) 5.80 K/uL (1.4-6.5) Lymphocytes # (Auto) 3.37 K/uL (1.2-3.4) Monocytes # (Auto) 0.54 K/uL (0.11-0.59) Eosinophils # (Auto) 0.39 K/uL (0-0.5) Basophils # (Auto) 0.07 K/uL (0-0.2) RDW Standard Deviation 43.7 fL (36.4-46.3) RDW Coefficient of Variation 13.8 % (11.5-14.5) Immature Granulocyte % (Auto) 0.2 % Immature Granulocyte # (Auto) 0.02 K/uL (0.00-0.02) Anion Gap 9.0 mmol/L (3-11) Est Creatinine Clear Calc Drug Dose 159.0 ml/min Estimated GFR () 143.9 Estimated GFR (Non- 124.2 BUN/Creatinine Ratio 11.9 (10-20) Calcium Level 9.5 mg/dl (8.5-10.1) Total Bilirubin 0.7 mg/dl (0.2-1) Direct Bilirubin 0.2 mg/dl (0-0.2) Aspartate Amino Transf (AST/SGOT) 66 U/L (15-37) Alanine Aminotransferase (ALT/SGPT) 150 U/L (12-78) Alkaline Phosphatase 98 U/L (45-117) Total Protein 8.1 gm/dl (6.4-8.2) Albumin 4.3 gm/dl (3.4-5.0) Thyroid Stimulating Hormone (TSH) 3.530 uIu/ml (0.300-4.500) Ethyl Alcohol mg/dL < 3.0 mg/dl (0-3)
[2016-11-02] MEDS: BUPRENORPHINE/NALOXONE 2/0.5MG 1 TAB SL SCH (17:06)
[2016-11-02] MEDS: QUETIAPINE FUMARATE 100 MG TAB PO SCH (20:37)
[2016-11-02] MEDS: THIAMINE HCL 100 MG TAB PO SCH (20:37)
[2016-11-03] MEDS: hydrOXYzine HCL 25 MG TAB PO PRN (04:01)
[2016-11-03 04:10] VITALS: BP 111/64; PULSE 96; TEMP 36.6
[2016-11-03 06:17] VITALS: BP 111/64; PULSE 96; TEMP 36.6
[2016-11-03] MEDS: NICOTINE 21 MG/24 HR TDSY TD SCH (09:00)
[2016-11-03] MEDS: MULTIVITAMIN TAB PO SCH (09:23)
[2016-11-03] MEDS: CLONIDINE HCL 0.1 MG TAB PO SCH ×4 (09:23→20:48)
[2016-11-03] MEDS: GABAPENTIN 600MG Q12H DOSE PO SCH ×2 (09:23→20:48)
[2016-11-03 09:36] VITALS: BP 107/81; PULSE 99; TEMP 36.6
[2016-11-03] MEDS: BUPRENORPHINE/NALOXONE 2/0.5MG 1 TAB SL SCH ×2 (10:26→17:49)
[2016-11-03] MEDS: QUETIAPINE FUMARATE 25 MG TAB PO PRN ×2 (12:13→17:57)
[2016-11-03 13:10] VITALS: BP 121/75; PULSE 97; TEMP 36.3
--- NOTE | 2016-11-03 13:19 | Psychiatric Progress Notes ---
Progress Note Date of Service Nov 03, 2016. Interval History 26-year-old gentleman from [place] who is admitted to our unit from [facility] where he developed suicidal ideation. He remains in distress with depression and suicidal thinking but denies an acute plan today. He is demanding of which medications he will and will not take and at times refused to consider any recommendations for his treatment. We will continue with the AWSS protocol for withdrawal purposes using both gabapentin and Ativan. In addition to his at bedtime therapy a we will add 25 mg every 4 hours when necessary for agitation. He reports that he had been taking only Klonopin 0.5 mg by prescription prior to going to [facility] and so will likely not be at risk of benzodiazepine withdrawal and will be covered by the gabapentin for any withdrawal potential. We will get supplemental information from his father and or his girlfriend. 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 We will coordinate with [facility] as he will need to return there since he is court ordered into treatment. He is concerned that through his IV drug use he may have been exposed blood-borne pathogen's. Since this information will not change the direction of our care, we will defer this to his outpatient providers or he could have it done at his local [facility] clinic. At this time, he requires inpatient mental health treatment due to the risk for self-harm if discharged. Chief Complaint "All the medicines you guys give me aren't the right ones. They make me want to use heroin. Why don't you just give me Klonopin?" Subjective Patient was seen & assessed interval progress reviewed with Treatment Team. Per staff, last evening order of cigarette smoke detected in patient's room. Ashes were found on the toilet. Security involved in room search. A vigoureux printer was found. He provided an explanation that it was accidentally brought in by his girlfriend. He has been informed that his girlfriend is not welcome to visit him while he is admitted on the unit secondary to the contraband. He denied smoking a cigarette. This morning he needed a statement to the staff that he had contacted his rehabilitation last evening and they wanted him to re- escalate his Suboxone dose to 8 mg. Nursing staff called and confirmed that this was not true and we were informed again that they plan to taper him off of the medication. [facility] was contacted regarding the unit rule infractions regarding smoking and contraband and there is a possibility that he may be taken to long term as is substance abuse treatment is court ordered. He is not participating in unit programming here and expresses disinterest. He was observed speaking calmly on the phone, when I brought him back to the office for interview he immediately began rocking in the chair, holding his head in his hands, and crying, complaining that he feels so depressed and no one cares. He repeatedly asks for controlled substances including Concerta, Ativan, and clonazepam. He reports that all antidepressants have made him more suicidal in the past. He does describe feeling restless. He denied active suicidal ideation and expressed feeling eager to return to his rehabilitation on Saturday if possible. Review of Systems Constitutional: + problem reported (denies insomnia ) Cardiovascular: No chest pain, No orthopnea, No PND, No edema, No claudication , No palpitations, No problem reported Sleep Information Total Hours of Sleep: 5.50 Meal Information Percent of Breakfast Consumed: 15 Percent of Lunch Consumed: 25 Percent of Dinner Consumed: 0 Mental Status Exam During interview pt is: alert and oriented, uncooperative Appearance: appropriately dressed Eye contact is: poor Motor behavior is: other (agitated with rocking, restlessness) Speech: other (at times rapid when in distress) Affect: tearful, irritable Mood is: irritable Thought process: other (disjointed, perseverative re access to medications) Thought content: preoccupation Suicidal thought are: denied, Plan: denied, Intent: denied Homicidal thoughts are: denied Hallucinations: denies auditory, denies visual Cognition: language grossly intact Intelligence estimated to be: below average Insight: impaired Judgement: impaired Impression The patient has been poorly cooperative with treatment since admission, refusing most groups and focused on getting meds. His primary problem is that of addictions, we will strive to return him to rehab as soon as he is stable. He is again denying SI today and so may be able to return in the next few days. We have been instructed by [facility] staff that they were told that if the patient is not cooperative with treatment in any way, that he will be returned to long term. Plan (1) Mood disorder 11/01/16 -Will clarify with his outpatient psychiatrist, Dr. Farmer, what his current regimen is. Pharmacy records reveal 3 different recent antidepressants. -Will continue his Seroquel 200 mg at bedtime and add 25 mg every 4 hours when necessary agitation -Will need to clarify outpatient working diagnosis although may be difficult to make in view of chronic substance abuse. -Will continue Lamictal 100 mg twice a day -Every 15 minute checks for safety -Encourage participation in group and individual counseling as tolerated -The patient is agitating himself by phone calls with his father and staff will need to monitor this -Obtain outpatient records from his psychiatrist to clarify diagnoses and current medication list -Supplemental from father and our family meeting 11/03 - Patient complaining of depression but denying suicidal ideation today. Affect is superficial and felt likely to be manipulative - In effort to potentially assist with some mood elevation and reduce symptoms of withdrawal, will trial him on Remeron 15 mg by mouth daily at bedtime tonight. Common risks and benefits were discussed. Patient was in agreement with trial (2) Polysubstance abuse 11/01/16 - Recommend return to [place] when stable - AWSS protocol using both gabapentin and Ativan - Recovery protocol -Will continue Suboxone taper here as suggested by [facility] -Obtain outpatient records from patient's Suboxone provider in [place] 11/03 - We'll continue the 2 mg Suboxone twice a day for today. Appears [facility] had intended to cut this in half after 2 days to 1 mg twice a day, and then to 0.5 mg twice a day 2 days later. We'll consider dose reduction again the next few days however I'm not sure that it is worth acutely decompensating him behaviorally. - Triggered REBECCA as protocol 2 yesterday, receiving 3 mg of Ativan in total - Decline patient's request for clonazepam (3) Alcohol withdrawal 11/01/16 - AWSS Protocol using gabapentin and Ativan - Recovery protocol -Return to [facility] when stable (4) Hypertension 11/01 - Monitor vital signs every 4 hours as part of the withdrawal protocol -Quantity seen as not formulary and so will use clonidine -Difficult to tell if he actually has essential hypertension or whether his BP elevations are in the context of substance withdrawal (5) Tobacco use disorder 11/01 -Recommend patient cut down or quit. Recently smoking as much as 3 pack of cigarettes a day so we will provide nicotinic patch 21 mg daily and Nicorette gum every hour when necessary -Patient declines any further intervention for smoking cessation as he plans to return to smoking immediately upon discharge- Has been reviewed with Dr. Susie Snyder Discharge / Aftercare Planning Primary Care Physician: Name: Brayan Pantoja ([facility] per pt) Therapist: Name: Leandra Restrepo ([facility] Substance Abuse) Quantitative Strategy Analyst: Name: None Visit Code E&M Code: 52082 Inventory Assets Strengths: Level of his girlfriend Needs: To abstain from all illicit substances. Risk Factors Assessment Male: Yes : Yes /single/: No Higher / Fall in social status: No Health problems: No Mental Health Diagnoses: Yes Substance use disorders: Yes Previous attempt: Yes Previous psychiatric stay: Yes Hopelessness: Yes Smoker: Yes Protective Factors Assessment Jewish beliefs: No : No Responsible for young children: No Employed: No Stable relationships: Yes Supportive family: No Data Vital Signs Last 24 Hrs: Date Time Temp Pulse Resp B/P (MAP) Pulse Ox O2 Delivery O2 Flow Rate FiO2 11/03/16 09:36 36.6 99 18 107/81 11/03/16 06:17 36.6 96 17 111/64 11/03/16 04:10 36.6 96 17 111/64 11/02/16 20:33 37.1 120 18 192/75 11/02/16 19:01 82 18 124/78 11/02/16 16:09 36.5 72 16 105/65 Meds Administered Last 24 Hrs: Meds Administered (Past 24Hrs) Medications (Trade) Dose Ordered Sig/Alissa Route Start Time Stop Time Status Last Admin Dose Admin Gabapentin (Neurontin Tab) 600 mg Q8H PO 11/02/16 06:00 11/02/16 22:01 DC 11/02/16 20:37 600 MG Gabapentin (Neurontin Tab) 600 mg Q12H PO 11/03/16 08:00 11/03/16 20:01 11/03/16 09:23 600 MG Buprenorphine/ Naloxone (Suboxone Tab) 1 tab BID17 SL 11/02/16 17:00 12/02/16 16:59 11/03/16 10:26 1 TAB
[2016-11-03 17:18] VITALS: BP 126/76; PULSE 57; TEMP 36.8
[2016-11-03] MEDS ORDERED: NURSING VERBAL MED ORDER ONE (18:15)
[2016-11-03] MEDS: MIRTAZAPINE TAB 15 MG TAB PO SCH (20:48)
[2016-11-03] MEDS: THIAMINE HCL 100 MG TAB PO SCH (20:49)
[2016-11-03] MEDS: QUETIAPINE FUMARATE 100 MG TAB PO SCH (20:49)
[2016-11-03] MEDS: NICOTINE POLACRILEX 2 MG GUM MT PRN (20:50)
[2016-11-03 20:53] VITALS: BP 141/74; PULSE 97; TEMP 36.7
[2016-11-04] MEDS: QUETIAPINE FUMARATE 25 MG TAB PO PRN ×4 (00:45→19:29)
[2016-11-04] MEDS: hydrOXYzine HCL 25 MG TAB PO PRN ×2 (01:56→23:12)
[2016-11-04] MEDS ORDERED: GABAPENTIN 600MG X1 DOSE PO SCH (08:00)
[2016-11-04] MEDS: NICOTINE 21 MG/24 HR TDSY TD SCH (09:45)
[2016-11-04] MEDS: CLONIDINE HCL 0.1 MG TAB PO SCH ×4 (09:46→20:03)
[2016-11-04] MEDS: MULTIVITAMIN TAB PO SCH (09:46)
[2016-11-04] MEDS: NICOTINE POLACRILEX 2 MG GUM MT PRN ×2 (10:04→17:46)
[2016-11-04] MEDS: BUPRENORPHINE/NALOXONE 2/0.5MG 1 TAB SL SCH ×2 (10:09→17:34)
[2016-11-04 10:31] LABS: COCAINE, URINE 229 NG/ML (CUTOFF=100); HYDROXYETHYLFLURAZEPAM CONF NEGATIVE NG/ML (CUTOFF=50); HYDROXYMIDAZOLAM NEGATIVE NG/ML (CUTOFF=50); HYDROXYTRIAZOLAM CONF NEGATIVE NG/ML (CUTOFF=50); TEMAZEPAM CONF 640 NG/ML (CUTOFF=50)
--- NOTE | 2016-11-04 11:28 | Psychiatric Progress Notes ---
Progress Note Date of Service Nov 04, 2016. Interval History 26-year-old gentleman from [place] who is admitted to our unit from [facility] where he developed suicidal ideation. He remains in distress with depression and suicidal thinking but denies an acute plan today. He is demanding of which medications he will and will not take and at times refused to consider any recommendations for his treatment. We will continue with the AWSS protocol for withdrawal purposes using both gabapentin and Ativan. In addition to his at bedtime therapy a we will add 25 mg every 4 hours when necessary for agitation. He reports that he had been taking only Klonopin 0.5 mg by prescription prior to going to [facility] and so will likely not be at risk of benzodiazepine withdrawal and will be covered by the gabapentin for any withdrawal potential. We will get supplemental information from his father and or his girlfriend. 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 We will coordinate with [facility] as he will need to return there since he is court ordered into treatment. He is concerned that through his IV drug use he may have been exposed blood-borne pathogen's. Since this information will not change the direction of our care, we will defer this to his outpatient providers or he could have it done at his local [facility] clinic. At this time, he requires inpatient mental health treatment due to the risk for self-harm if discharged. Chief Complaint "I actually feel better". Subjective Patient was seen & assessed interval progress reviewed with Treatment Team. Per staff, patient had a fairly uneventful night. He seems to be making efforts to be less argumentative and more participatory. He did attend some evening programming. Staff have been in contact with rehabilitation who has indicated to us that there should be a 0 tolerance policy for the patient regarding compliance with treatment and unit policies. If he is not cooperative , the plan is to send him back to correction when he returns to the rehabilitation on Saturday. This was addressed directly with the patient this morning and he expressed awareness and desire to be compliant such that he will be accepted back at the rehabilitation. He reports that his mood seems much better this morning, and he feels more calm. He would like to continue on the Remeron that was started last night as he feels it was well tolerated and may be helping him feel less anxious. He denies suicidal or homicidal ideation or acute safety concerns. Expresses desire to return to the rehabilitation tomorrow. I reviewed with him that the rehabilitation plans to discontinue his Suboxone and he was agreeable to dose reduction today. Review of Systems Constitutional: No fever, No chills, No sweats, No weight loss, No weakness, No fatigue, No problem reported Cardiovascular: No chest pain, No orthopnea, No PND, No edema, No claudication , No palpitations, No problem reported Sleep Information Total Hours of Sleep: 2.00 Meal Information Percent of Breakfast Consumed: 15 Percent of Lunch Consumed: 15 Percent of Dinner Consumed: 100 Mental Status Exam During interview pt is: alert and oriented, cooperative Appearance: appropriately dressed Eye contact is: fair Motor behavior is: steady gait & station, psychomotor agitation Speech: normal in rate, rhythm & volume Affect: mood congruent, other (much more calm today) Mood is: other (better) Thought process: goal directed (with medications and discharge), other Thought content: preoccupation Suicidal thought are: denied, Plan: denied, Intent: denied Homicidal thoughts are: denied Hallucinations: denies auditory, denies visual Cognition: language grossly intact Intelligence estimated to be: below average Insight: impaired Judgement: impaired Impression The patient had been poorly cooperative with treatment since admission, refusing most groups and focused on getting meds. His primary problem is that of addictions, we will strive to return him to rehab as soon as he is stable. We have been instructed by [facility] staff that they were told that if the patient is not cooperative with treatment in any way, that he will be returned to correction. This seems to be motivating some improved efforts and behavior from the patient. Plan (1) Mood disorder 11/01/16 -Will clarify with his outpatient psychiatrist, Dr. Farmer, what his current regimen is. Pharmacy records reveal 3 different recent antidepressants. -Will continue his Seroquel 200 mg at bedtime and add 25 mg every 4 hours when necessary agitation -Will need to clarify outpatient working diagnosis although may be difficult to make in view of chronic substance abuse. -Will continue Lamictal 100 mg twice a day -Every 15 minute checks for safety -Encourage participation in group and individual counseling as tolerated -The patient is agitating himself by phone calls with his father and staff will need to monitor this -Obtain outpatient records from his psychiatrist to clarify diagnoses and current medication list -Supplemental from father and our family meeting 11/03 - Patient complaining of depression but denying suicidal ideation today. Affect is superficial and felt likely to be manipulative - In effort to potentially assist with some mood elevation and reduce symptoms of withdrawal, will trial him on Remeron 15 mg by mouth daily at bedtime tonight. Common risks and benefits were discussed. Patient was in agreement with trial 11/04 - Reporting some improvement in mood and decreased anxiety. Continue Remeron unchanged which is well tolerated so far (2) Polysubstance abuse 11/01/16 - Recommend return to [place] when stable - AWSS protocol using both gabapentin and Ativan - Recovery protocol -Will continue Suboxone taper here as suggested by [facility] -Obtain outpatient records from patient's Suboxone provider in [place] 11/03 - We'll continue the 2 mg Suboxone twice a day for today. Appears [facility] had intended to cut this in half after 2 days to 1 mg twice a day, and then to 0.5 mg twice a day 2 days later. We'll consider dose reduction again the next few days however I'm not sure that it is worth acutely decompensating him behaviorally. - Triggered REBECCA as protocol 2 yesterday, receiving 3 mg of Ativan in total - Decline patient's request for clonazepam 11/04 - Reduce Suboxone to 1 mg twice a day today as rehabilitation plans to discontinue it upon his return - The Remeron may help reduce opiate withdrawal symptoms as well (3) Alcohol withdrawal 11/01/16 - AWSS Protocol using gabapentin and Ativan - Recovery protocol -Return to [facility] when stable 11/04 - no ativan prn's given on 11/03 per AWSS protocol (4) Hypertension 11/01 - Monitor vital signs every 4 hours as part of the withdrawal protocol -Quantity seen as not formulary and so will use clonidine -Difficult to tell if he actually has essential hypertension or whether his BP elevations are in the context of substance withdrawal (5) Tobacco use disorder 11/01 -Recommend patient cut down or quit. Recently smoking as much as 3 pack of cigarettes a day so we will provide nicotinic patch 21 mg daily and Nicorette gum every hour when necessary -Patient declines any further intervention for smoking cessation as he plans to return to smoking immediately upon discharge Has been reviewed with Dr. Susie Snyder Discharge / Aftercare Planning Primary Care Physician: Name: Brayan Pantoja ([facility] per pt) Therapist: Name: Leandra Restrepo ([facility] Substance Abuse) Oil And Gas Superintendent: Name: None Visit Code E&M Code: 28274 Inventory Assets Strengths: Level of his girlfriend Needs: To abstain from all illicit substances. Risk Factors Assessment Male: Yes : Yes /single/: No Higher / Fall in social status: No Health problems: No Mental Health Diagnoses: Yes Substance use disorders: Yes Previous attempt: Yes Previous psychiatric stay: Yes Hopelessness: Yes Smoker: Yes Protective Factors Assessment Rastafarian beliefs: No : No Responsible for young children: No Employed: No Stable relationships: Yes Supportive family: No Data Vital Signs Last 24 Hrs: Date Time Temp Pulse Resp B/P (MAP) Pulse Ox O2 Delivery O2 Flow Rate FiO2 11/03/16 20:53 36.7 97 18 141/74 11/03/16 17:18 36.8 57 18 126/76 11/03/16 13:10 36.3 97 18 121/75 Meds Administered Last 24 Hrs: Meds Administered (Past 24Hrs) Medications (Trade) Dose Ordered Sig/Alissa Route Start Time Stop Time Status Last Admin Dose Admin Gabapentin (Neurontin Tab) 600 mg Q12H PO 11/03/16 08:00 11/03/16 20:01 DC 11/03/16 20:48 600 MG Gabapentin (Neurontin Tab) 600 mg Q24H PO 11/04/16 08:00 11/04/16 08:01 DC 11/04/16 09:46 600 MG Buprenorphine/ Naloxone (Suboxone Tab) 1 tab BID17 SL 11/02/16 17:00 11/04/16 09:44 DC 11/03/16 17:49 1 TAB Mirtazapine (Remeron Tab) 15 mg HS PO 11/03/16 22:00 12/03/16 21:59 11/03/16 20:48 15 MG Nicotine Polacrilex (Nicorette 2MG Gum) 1 piece Q2H PRN MT 11/03/16 18:45 12/03/16 18:44 11/04/16 10:04 1 PIECE Buprenorphine/ Naloxone (Suboxone Tab) 0.5 tab BID17 SL 11/04/16 09:44 12/02/16 16:59 11/04/16 10:09 0.5 TAB
--- NOTE | 2016-11-04 11:35 | Psychiatric Progress Notes ---
Progress Note Date of Service Nov 04, 2016. Interval History 26-year-old gentleman from [place] who is admitted to our unit from [facility] where he developed suicidal ideation. He remains in distress with depression and suicidal thinking but denies an acute plan today. He is demanding of which medications he will and will not take and at times refused to consider any recommendations for his treatment. We will continue with the AWSS protocol for withdrawal purposes using both gabapentin and Ativan. In addition to his at bedtime therapy a we will add 25 mg every 4 hours when necessary for agitation. He reports that he had been taking only Klonopin 0.5 mg by prescription prior to going to [facility] and so will likely not be at risk of benzodiazepine withdrawal and will be covered by the gabapentin for any withdrawal potential. We will get supplemental information from his father and or his girlfriend. 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 We will coordinate with [facility] as he will need to return there since he is court ordered into treatment. He is concerned that through his IV drug use he may have been exposed blood-borne pathogen's. Since this information will not change the direction of our care, we will defer this to his outpatient providers or he could have it done at his local [facility] clinic. At this time, he requires inpatient mental health treatment due to the risk for self-harm if discharged. Subjective \ Review of Systems Cardiovascular: No chest pain, No orthopnea, No PND, No edema, No claudication , No palpitations, No problem reported Sleep Information Total Hours of Sleep: 2.00 Meal Information Percent of Breakfast Consumed: 15 Percent of Lunch Consumed: 15 Percent of Dinner Consumed: 100 Mental Status Exam During interview pt is: alert and oriented, cooperative Appearance: appropriately dressed Eye contact is: fair Motor behavior is: steady gait & station, no abnormal motor movements Speech: normal in rate, rhythm & volume Affect: mood congruent, other Mood is: other (better) Thought process: goal directed (with medications and discharge), other Thought content: preoccupation Suicidal thought are: denied, Plan: denied, Intent: denied Homicidal thoughts are: denied Hallucinations: denies auditory, denies visual Cognition: language grossly intact Intelligence estimated to be: below average Insight: impaired Judgement: impaired Impression The patient had been poorly cooperative with treatment since admission, refusing most groups and focused on getting meds. His primary problem is that of addictions, we will strive to return him to rehab as soon as he is stable. We have been instructed by [facility] staff that they were told that if the patient is not cooperative with treatment in any way, that he will be returned to senior care. This seems to be motivating some improved efforts and behavior from the patient. Plan (1) Mood disorder 11/01/16 -Will clarify with his outpatient psychiatrist, Dr. Farmer, what his current regimen is. Pharmacy records reveal 3 different recent antidepressants. -Will continue his Seroquel 200 mg at bedtime and add 25 mg every 4 hours when necessary agitation -Will need to clarify outpatient working diagnosis although may be difficult to make in view of chronic substance abuse. -Will continue Lamictal 100 mg twice a day -Every 15 minute checks for safety -Encourage participation in group and individual counseling as tolerated -The patient is agitating himself by phone calls with his father and staff will need to monitor this -Obtain outpatient records from his psychiatrist to clarify diagnoses and current medication list -Supplemental from father and our family meeting 11/03 - Patient complaining of depression but denying suicidal ideation today. Affect is superficial and felt likely to be manipulative - In effort to potentially assist with some mood elevation and reduce symptoms of withdrawal, will trial him on Remeron 15 mg by mouth daily at bedtime tonight. Common risks and benefits were discussed. Patient was in agreement with trial 11/04 - Reporting some improvement in mood and decreased anxiety. Continue Remeron unchanged which is well tolerated so far (2) Polysubstance abuse 11/01/16 - Recommend return to [place] when stable - AWSS protocol using both gabapentin and Ativan - Recovery protocol -Will continue Suboxone taper here as suggested by [facility] -Obtain outpatient records from patient's Suboxone provider in [place] 11/03 - We'll continue the 2 mg Suboxone twice a day for today. Appears [facility] had intended to cut this in half after 2 days to 1 mg twice a day, and then to 0.5 mg twice a day 2 days later. We'll consider dose reduction again the next few days however I'm not sure that it is worth acutely decompensating him behaviorally. - Triggered REBECCA as protocol 2 yesterday, receiving 3 mg of Ativan in total - Decline patient's request for clonazepam 11/04 - Reduce Suboxone to 1 mg twice a day today as rehabilitation plans to discontinue it upon his return - The Remeron may help reduce opiate withdrawal symptoms as well (3) Alcohol withdrawal 11/01/16 - AWSS Protocol using gabapentin and Ativan - Recovery protocol -Return to [facility] when stable 11/04 - no ativan prn's given on 11/03 per AWSS protocol (4) Hypertension 11/01 - Monitor vital signs every 4 hours as part of the withdrawal protocol -Quantity seen as not formulary and so will use clonidine -Difficult to tell if he actually has essential hypertension or whether his BP elevations are in the context of substance withdrawal (5) Tobacco use disorder 11/01 -Recommend patient cut down or quit. Recently smoking as much as 3 pack of cigarettes a day so we will provide nicotinic patch 21 mg daily and Nicorette gum every hour when necessary -Patient declines any further intervention for smoking cessation as he plans to return to smoking immediately upon discharge Has been reviewed with Dr. Susie Snyder Discharge / Aftercare Planning Primary Care Physician: Name: Brayan Pantoja (Suboxone per pt) Therapist: Name: Leandra Restrepo ([facility] Substance Abuse) Area Plant Manager: Name: Lupe Inventory Assets Strengths: Level of his girlfriend Needs: To abstain from all illicit substances. Risk Factors Assessment Male: Yes : Yes /single/: No Higher / Fall in social status: No Health problems: No Mental Health Diagnoses: Yes Substance use disorders: Yes Previous attempt: Yes Previous psychiatric stay: Yes Hopelessness: Yes Smoker: Yes Protective Factors Assessment Anglican beliefs: No : No Responsible for young children: No Employed: No Stable relationships: Yes Supportive family: No Data Vital Signs Last 24 Hrs: Date Time Temp Pulse Resp B/P (MAP) Pulse Ox O2 Delivery O2 Flow Rate FiO2 11/03/16 20:53 36.7 97 18 141/74 11/03/16 17:18 36.8 57 18 126/76 11/03/16 13:10 36.3 97 18 121/75 Meds Administered Last 24 Hrs: Meds Administered (Past 24Hrs) Medications (Trade) Dose Ordered Sig/Alissa Route Start Time Stop Time Status Last Admin Dose Admin Gabapentin (Neurontin Tab) 600 mg Q12H PO 11/03/16 08:00 11/03/16 20:01 DC 11/03/16 20:48 600 MG Gabapentin (Neurontin Tab) 600 mg Q24H PO 11/04/16 08:00 11/04/16 08:01 DC 11/04/16 09:46 600 MG Buprenorphine/ Naloxone (Suboxone Tab) 1 tab BID17 11/02/16 17:00 11/04/16 09:44 DC 11/03/16 17:49 1 TAB Mirtazapine (Remeron Tab) 15 mg HS PO 11/03/16 22:00 12/03/16 21:59 11/03/16 20:48 15 MG Nicotine Polacrilex (Nicorette 2MG Gum) 1 piece Q2H PRN MT 11/03/16 18:45 12/03/16 18:44 11/04/16 10:04 1 PIECE Buprenorphine/ Naloxone (Suboxone Tab) 0.5 tab BID17 11/04/16 09:44 12/02/16 16:59 11/04/16 10:09 0.5 TAB
[2016-11-04 12:12] VITALS: BP 121/73; PULSE 92; TEMP 37
[2016-11-04 16:21] VITALS: BP 112/72; PULSE 90; TEMP 36.8
[2016-11-04 20:02] VITALS: BP 127/73; PULSE 84; TEMP 36.8
[2016-11-04] MEDS: MIRTAZAPINE TAB 15 MG TAB PO SCH (21:20)
[2016-11-04] MEDS: THIAMINE HCL 100 MG TAB PO SCH (21:20)
[2016-11-04] MEDS: QUETIAPINE FUMARATE 100 MG TAB PO SCH (21:21)
[2016-11-05 07:06] VITALS: BP_SYST 103; BP_SYST 104; BP_DIAS 63; BP_DIAS 64; PULSE 65; PULSE 83; TEMP 36.8
[2016-11-05 08:19] VITALS: BP 108/70; PULSE 76; TEMP 36.7
[2016-11-05] MEDS: CLONIDINE HCL 0.1 MG TAB PO SCH (08:44)
[2016-11-05] MEDS: MULTIVITAMIN TAB PO SCH (08:44)
[2016-11-05] MEDS: BUPRENORPHINE/NALOXONE 2/0.5MG 1 TAB SL SCH (08:45)
[2016-11-05] MEDS: NICOTINE 21 MG/24 HR TDSY TD SCH (08:50)
[2016-11-05] MEDS ORDERED: SRQ25 PO (09:07)
[2016-11-05] MEDS ORDERED: RMR15 PO (09:07)
[2016-11-05] MEDS ORDERED: BUPR2MIS SL (09:07)
--- NOTE | 2016-11-05 09:15 | Discharge Instructions ---
Discharge Information Report Includes Report will include the: Discharge Instructions & Summary Admission Admission Date / Time: Oct 31, 2016 at 19:34 Reason for Admission: Bipolar Disorder Discharge Discharge Diagnosis / Problem: Polysubstance addiction/withdrawal, depression Condition at Discharge: Good Discharge Goals Goal(s): Decrease discomfort, Improve disease control, Prevent Disease Progression Activity Recommendations Activity Limitations: resume your previous activity . Instructions / Follow-Up Instructions / Follow-Up . SPECIAL CARE INSTRUCTIONS: 1. Follow through with your scheduled aftercare appointments. If unable to keep an appointment, please call to reschedule. 2. Take your medication only as prescribed. Medication should not be changed or stopped without the approval of your doctor. In the event of worsening symptoms or concerns about side effects, contact your doctor immediately. 3. Utilize new healthy coping skills, anger management skills, and stress management skills learned during your hospitalization. Journal feelings and process them with a support person. Identify stressors or situations that may result in relapse, deterioration or inappropriate behaviors and develop a plan to deal with those issues. 4. If your coping skills are ineffective and you are in crisis, contact your outpatient providers for direction. If unable to reach your providers, please call the CAN HELP LINE AT or go to the closest Emergency Room. 5. Avoid alcohol and un-prescribed drugs. 6. You have been provided with the Mental Health Advance Directives Pamphlet for your review. AFTERCARE APPOINTMENTS: * Please call your insurance company prior to your scheduled appointment to confirm your aftercare providers are covered. Take your insurance information to your appointments. . Discharge / Aftercare Planning Primary Care Physician: Name: Brayan Pantoja (Suboxone Dr salazar pt) Therapist: Name Of Therapist: Leandra Restrepo ([facility] Substance Abuse) Fire Official: Name: None . Follow-Up Care Plan for Follow-Up Care: The patient will be returning to [facility] rehab Current Hospital Diet Patient's current hospital diet: Regular Diet Discharge Diet Recommended Diet: Regular Diet Procedures Procedures Performed: No Pending Studies Pending Studies at Discharge: No Medical Emergencies . Who to Call and When: Medical Emergencies: For questions or emergencies related to your hospital stay, please contact the Inpatient Behavioral Health Unit at [phone]. A fibrous plasterer is on-call 19/11 for the Behavioral Health Unit for emergencies At any time you feel your situation is an emergency, you may also call 911 immediately. . Non-Emergent Contact Non-Emergency issues call your: Psychiatrist Past History Medical & Surgical History: (1) Hypertension Advance Directives Existing Advance Directive: No Do You Have an Existing Mental: No Existing Living Will: No Existing Power of Sales Representative Advertising: No Advance Directives Info Given: To Pt/S.O. Advance Directives Reason: Declines as Mental Health Visit. Discharge Summary Admission HPI Per the Admitting provider: The patient is a 26-year-old gentleman from [facility] who apparently had been in [facility] for several months for [facility]. At some point during his [facility] stay, he developed suicidal ideation and seizures and was hospitalized medically for 7 days. He was then returned to [facility] for 3 days but then the courts allowed him to return home where he was for 2 months before he failed multiple drug screens and was court ordered into rehabilitation at [facility] here in [place]. He says he was at [facility] for 3 days, began having suicidal ideation because of his situation and being away from his girlfriend. He was then brought to our emergency room for evaluation and admitted voluntarily with a backup 302 petition her statement. He states he has a lot of stressors in his life. He says his growing up years were chaotic as both parents were drug addicts and he was always around drugs. He dropped out of high school in eighth grade because he had social anxiety, couldn't be around other people. He started doing drugs at the age of 17 and it became a problem by the age of 19. He has spent time at a rehabilitation facility in [facility]. His longest period of sobriety was 1-1/2 years around the age of 19 when he went to this facility. He admits that he has continued to use substances since then including a 24 or 30 pack of beer daily, 3-5 bundles of heroin IV, several grams of cocaine daily. This is been going on for several years. He also admits that he has been in mental health treatment for many years and is on disability for it. He uses diagnoses like bipolar disorder and schizophrenia to describe his treatment. He says he is in treatment with a Dr. Lynne in [facility] but we cannot find this physician when we goggle it. He says he has been on Lamictal, Seroquel, clonidine and Klonopin for years. He does not have a good relationship with his family and was on the phone arguing with his father prior to the interview. Today he continues to report a depressed mood with suicidal ideation but denies a specific plan. He says he is experiencing nausea and vomiting as part of his withdrawal and is unable to eat and says he hasn't eaten anything in 5 days. He reports disturbed sleep acutely over the last 5 days but chronically since about the age of 16 or 17. He reports low energy but during the interview he is shaking his legs restless and leaves twice because he is irritable. When asked about hallucinations, he says "my heads all fucked up." And says that he did hear voices when he was in [facility] that old him he was worthless. He reports chronic social anxiety feeling that he can't be around people because he starts to shake, thinks they're talking about him and out to get him. This has been going on for several years. He denies any symptoms of jermain. Its difficult to tell whether he has clear eating disordered symptoms but says that he doesn't like to be fast and will sometimes not eat because of it. During the interview he is requesting high dose Valium and Suboxone and is refusing to take the AWSS protocol medicines including gabapentin. Hospital Course (1) Mood disorder 11/01/16 -Will clarify with his outpatient psychiatrist, Dr. Farmer, what his current regimen is. Pharmacy records reveal 3 different recent antidepressants. -Will continue his Seroquel 200 mg at bedtime and add 25 mg every 4 hours when necessary agitation -Will need to clarify outpatient working diagnosis although may be difficult to make in view of chronic substance abuse. -Will continue Lamictal 100 mg twice a day -Every 15 minute checks for safety -Encourage participation in group and individual counseling as tolerated -The patient is agitating himself by phone calls with his father and staff will need to monitor this -Obtain outpatient records from his psychiatrist to clarify diagnoses and current medication list -Supplemental from father and our family meeting 11/03 - Patient complaining of depression but denying suicidal ideation today. Affect is superficial and felt likely to be manipulative - In effort to potentially assist with some mood elevation and reduce symptoms of withdrawal, will trial him on Remeron 15 mg by mouth daily at bedtime tonight. Common risks and benefits were discussed. Patient was in agreement with trial 11/04 - Reporting some improvement in mood and decreased anxiety. Continue Remeron unchanged which is well tolerated so far (2) Polysubstance abuse 11/01/16 - Recommend return to [place] when stable - AWSS protocol using both gabapentin and Ativan - Recovery protocol -Will continue Suboxone taper here as suggested by [facility] -Obtain outpatient records from patient's Suboxone provider in [place] 11/03 - We'll continue the 2 mg Suboxone twice a day for today. Appears [facility] had intended to cut this in half after 2 days to 1 mg twice a day, and then to 0.5 mg twice a day 2 days later. We'll consider dose reduction again the next few days however I'm not sure that it is worth acutely decompensating him behaviorally. - Triggered REBECCA as protocol 2 yesterday, receiving 3 mg of Ativan in total - Decline patient's request for clonazepam 11/04 - Reduce Suboxone to 1 mg twice a day today as rehabilitation plans to discontinue it upon his return - The Remeron may help reduce opiate withdrawal symptoms as well (3) Alcohol withdrawal 11/01/16 - AWSS Protocol using gabapentin and Ativan - Recovery protocol -Return to [facility] when stable 11/04 - no ativan prn's given on 11/03 per AWSS protocol (4) Hypertension 11/01 - Monitor vital signs every 4 hours as part of the withdrawal protocol -Quantity seen as not formulary and so will use clonidine -Difficult to tell if he actually has essential hypertension or whether his BP elevations are in the context of substance withdrawal (5) Tobacco use disorder 11/01 -Recommend patient cut down or quit. Recently smoking as much as 3 pack of cigarettes a day so we will provide nicotinic patch 21 mg daily and Nicorette gum every hour when necessary -Patient declines any further intervention for smoking cessation as he plans to return to smoking immediately upon discharge Risk Factors Assessment Male: Yes : Yes /single/: No Higher / Fall in social status: No Health problems: No Mental Health Diagnoses: Yes Substance use disorders: Yes Previous attempt: Yes Previous psychiatric stay: Yes Hopelessness: Yes Smoker: Yes Protective Factors Assessment Lutheran beliefs: No : No Responsible for young children: No Employed: No Stable relationships: Yes Supportive family: No Day of Discharge Assessment COURSE of HOSPITALIZATION: The patient was on 5 days. He was admitted from [facility] where he had been court ordered for treatment for polysubstance dependence and violation of probation. He made suicidal statements while at [facility], to hang himself in a suicide attempt. During his 5 day stay, he was continued on Suboxone and the dosage was tapered. He was initially quite uncooperative with treatment, refusing to meet with people when necessary, spending most of his time on the phone and yelling. At one point his girlfriend visited and he had her bring him cigarettes and a cyber engineer and was found smoking in the bathroom. We communicated this with [facility] who indicated that the patient was required to be completely cooperative with treatment or there was a possibility he would be returned to [place] to go to [facility]. This was shared with the patient who agreed then to abide by all unit rules and programming. He ceased to have suicidal ideation after about his first day or 2 on the unit. He continued to progress with his withdrawal and had fewer and fewer symptoms. He did continue to have some insomnia and so Remeron 15 mg at bedtime was started. Plan is for him to return to [facility] today to continue his inpatient rehabilitation. DAY OF DISCHARGE ASSESSMENT: Today the patient is requesting discharge. He voices a willingness to go back to rehabilitation and wants to gain his sobriety. His gait and station are within normal limits. Affect is restricted. Eye contact is good. Speech is of normal rate volume and tone. Thoughts are organized, goal-directed, and without evidence of thought disorder. Recent and remote memory are intact per conversation. Intelligence is estimated to be below average. Insight and judgment are improved over admission. Laboratory Test 10/31/16 15:30 10/31/16 16:45 Urine Color YELLOW Urine Appearance CLEAR Urine pH 7.0 Urine Specific [place] 1.017 Urine Protein NEG Urine Glucose (UA) NEG Urine Ketones NEG Urine Occult Blood NEG Urine Nitrite NEG Urine Bilirubin NEG Urine Urobilinogen NEG Urine Leukocyte Esterase NEG Urine Opiates Screen NEG Urine Methadone, Qualitative NEG Urine Barbiturates NEG Urine Phencyclidine (PCP) Level NEG Ur Amphetamine/Methamphetamine NEG Urine MDE-amphetamine (MDEA) negative Ur Methylenedioxyamphetamine (MDA) negative MDMA (Ecstasy) Screen POS Methylenedioxymethamphetamine (MDMA negative Urine Hydroxyalprazolam Confirm NEGATIVE Urine Benzodiazepines Screen POS 7-Amino Clonazepam Level NEGATIVE Urine Nordiazepam Confirmation 448 Urine Hydroxyethylflurazepam Level NEGATIVE Urine Lorazepam (GC/MS) NEGATIVE Urine Oxazepam Confirm (GC/MS) 365 Urine Temazepam Confirmation 640 Urine Hydroxytriazolam Confirmation NEGATIVE Urine Hydroxymidazolam Confirmation NEGATIVE Urine Cocaine Confirmation 229 Urine Cocaine Metabolite POS Urine Marijuana (THC) POS Urine Marijuana (THC Carboxy Acid) 1270 White Blood Count 10.19 Red Blood Count 5.11 Hemoglobin 15.3 Hematocrit 44.2 Mean Corpuscular Volume 86.5 Mean Corpuscular Hemoglobin 29.9 Mean Corpuscular Hemoglobin Concent 34.6 Platelet Count 344 Mean Platelet Volume 8.8 Neutrophils (%) (Auto) 56.9 Lymphocytes (%) (Auto) 33.1 Monocytes (%) (Auto) 5.3 Eosinophils (%) (Auto) 3.8 Basophils (%) (Auto) 0.7 Neutrophils # (Auto) 5.80 Lymphocytes # (Auto) 3.37 Monocytes # (Auto) 0.54 Eosinophils # (Auto) 0.39 Basophils # (Auto) 0.07 RDW Standard Deviation 43.7 RDW Coefficient of Variation 13.8 Immature Granulocyte % (Auto) 0.2 Immature Granulocyte # (Auto) 0.02 Sodium Level 138 Potassium Level 4.0 Chloride Level 103 Carbon Dioxide Level 26 Anion Gap 9.0 Blood Urea Nitrogen 10 Creatinine 0.80 Est Creatinine Clear Calc Drug Dose 159.0 Estimated GFR () 143.9 Estimated GFR (Non- 124.2 BUN/Creatinine Ratio 11.9 Random Glucose 82 Calcium Level 9.5 Total Bilirubin 0.7 Direct Bilirubin 0.2 Aspartate Amino Transferase (AST) 66 Alanine Aminotransferase (ALT) 150 Alkaline Phosphatase 98 Total Protein 8.1 Albumin 4.3 Thyroid Stimulating Hormone (TSH) 3.530 Ethyl Alcohol mg/dL < 3.0 Total Time Total Time Spent (min): Greater than 30 minutes Total Time Included: examination of the patient, discharge planning, medication reconciliation, communication with other providers Tobacco Cessation at Discharge Smoking Status: Current Every Day Smoker FDA approved Prescription: declined med & out pt counseling
[2016-11-05 09:39] VITALS: BP 108/70; PULSE 76; TEMP 36.7; O2SAT 98
[2016-11-05] MEDS: QUETIAPINE FUMARATE 25 MG TAB PO PRN (09:51)
== END 2016-11-05 10:08 | DRG 885 ==
LOC: C.EDB 14:57 → C.MHU 19:34
PROVIDERS: ADMIT Psychiatry & Neurology Psychiatry; ATTEND Psychiatry & Neurology Psychiatry
DX: F39 Unspecified mood [affective] disorder (principal); F10.239 Alcohol dependence with withdrawal, unspecified; F17.200 Nicotine dependence, unspecified, uncomplicated; F41.9 Anxiety disorder, unspecified; F11.10 Opioid abuse, uncomplicated; I10 Essential (primary) hypertension